=== PATIENT | female | born 1970 | race Caucasian/White ===

== ENCOUNTER → 2019-05-18 | Outpatient (CLI) | payer BC | LOC: SUN.DIA 09:00 | DX: E11.9 Type 2 diabetes mellitus without complications (principal) | CPT/HCPCS: G0108 ==

== ENCOUNTER → 2019-06-23 | Outpatient (CLI) | payer BC | LOC: SUN.DIA 06-04 15:06 → DIA.ED 06-04 15:26 | DX: E11.9 Type 2 diabetes mellitus without complications (principal) | CPT/HCPCS: G0108 ==